=== PATIENT | male | born 1950 | race Caucasian/White ===

== ENCOUNTER → 2016-05-08 | Outpatient (CLI) | payer MEDICARE, OTHER ==
[~2016-05-08] MED LIST: CALCIUM/MAGNESI1 T17 PO; FISH OIL CONCEN1 SG2 PO; MULTI VITAMINS1 TAB PO; PRINZIDE 12.5 M1 TA1 PO; TURMERIC500 MG PO; VITAMIN C500 MG PO
== END ==
LOC: COL.RAD 09:25
DX: Z13.6 Encounter for screening for cardiovascular disorders (principal); F17.210 Nicotine dependence, cigarettes, uncomplicated

== ENCOUNTER → 2019-12-12 | Outpatient (CLI) | payer MEDICARE, OTHER | LOC: COL.RAD | DX: K31.9 Disease of stomach and duodenum, unspecified (principal); R91.8 Other nonspecific abnormal finding of lung field | CPT/HCPCS: Q9967 ==

== ENCOUNTER 2020-03-27 12:47 | Inpatient (IN) | payer MEDICARE, OTHER ==
[~2020-03-27] VITALS: Ht 182.9 cm; Wt 92.5 kg
[2020-04-02] VITALS (11 sets, daily range): BP systolic 122–150; BP diastolic 72–95; PULSE 49–75; TEMP 97.9–98.8
[2020-04-02] MEDS ORDERED: LIPITOR 10MG10 MG (08:12)
[2020-04-02] MEDS ORDERED: PRINZIDE 12.5 M1 TA1 PO (08:13)
[2020-04-02] MEDS ORDERED: NORVASC 5MG5 MG/TAB PO (08:14)
[2020-04-02] MEDS ORDERED: TURMERIC500 MG PO (08:15)
[2020-04-02] MEDS ORDERED: OMEGA-3 1000 MG1 CAP PO (08:16)
[2020-04-02] MEDS ORDERED: DUO-KAPS1 CAP PO (08:16)
[2020-04-02] MEDS ORDERED: VITAMIN D31000 I1 PO (08:17)
[2020-04-02] MEDS ORDERED: PHARMASSURE ZIN50 MG PO (08:17)
[2020-04-02] MEDS ORDERED: [UNRECOGNIZED DRUG - OTHER] PO (08:18)
--- NOTE | 2020-04-02 19:19 | NUR ---
PT RESTING IN BED, DENIES ANY NEEDS AT PRESENT. FINISHING HIS EVENING MEAL.
--- NOTE | 2020-04-02 19:20 | NUR ---
Patient has done well today post operatively. Pain manged well with [place]. Abdominal lap site dressing CDI. He has voided without troubles. He is tolerating clears without nausea. Int. Vss on room air. Bedside report to night nurse
--- NOTE | 2020-04-02 23:31 | NUR ---
PT STATES HE HAS BEEN UP TO THE BR. SCD'S ON BILAT LE. ALSO STATES HE TOOK HIS LIPITOR THAT HE BROUGHT FROM HOME BECAUSE HE WAS TOLD HE COULD. REQUEST AND GIVEN PAIN MED FOR ABDOMINAL DISCOMFORT. RATES PAIN 5/10. LIGHTS OUT AND CALL LIGHT WITHIN REACH. DENIES ANY OTHER NEEDS.
[2020-04-03 00:25] VITALS: BP 116/62; PULSE 63; TEMP 98.5
[2020-04-03 04:32] VITALS: BP 116/69; PULSE 64; TEMP 97.7
[2020-04-03 07:13] VITALS: BP 124/70; PULSE 65; TEMP 99
--- NOTE | 2020-04-03 07:30 | NUR ---
PT HAD AN UNEVENTFUL NIGHT. [place] GIVEN FOR ABDOMINAL PAIN BUT NEEDED 2ND PILL 45 MIN AFTER FIRST DOSE. SLEPT FAIR THROUGH THE NIGHT. CALL LIGHT IN REACH. ASKING FOR MORE TO EAT.
--- NOTE | 2020-04-03 08:00 | NUR ---
Patient resting in bed. rounded. Patient general diet breakfast ordered. He denies nausea. [place] for pain per request, he report pain elevated when sitting up at 90 degrees. He denies troubles voided. abdomen distended, but soft. bowels audible. Incisions sites CDI. Scds. Int. Will monitor.
[2020-04-03 11:05] VITALS: BP 122/58; PULSE 71; TEMP 98.1
--- NOTE | 2020-04-03 13:00 | NUR ---
First visit from the chute worker. No needs right now.
[2020-04-03 16:00] VITALS: BP 142/77; PULSE 69; TEMP 97.8
[2020-04-03] MEDS ORDERED: NORCO 325 MG-51 TAB PO (16:39)
--- NOTE | 2020-04-03 17:00 | NUR ---
Patient ready for discharge. rounded this evening. Discharge orders obtained. INT dc. We reviewed all discharge education. We reviewed diet & activity restrictions. Incision cares discussed. Follow up appt schdeuled. rounded okayed patient to drive himself home. Patient ambulated out with all belongings. Denies questions or concerns.
== END 2020-04-03 17:15 | disposition home or self-care (01) | DRG 328 ==
LOC: INPTSU 04-02 06:32 → SURG 04-02 08:30 → JCC 04-02 10:44
PROVIDERS: ADMIT Surgery
PROC: 0DB64ZZ Excision of Stomach, Percutaneous Endoscopic Approach (ICD-10-PCS; principal; 2020-04-02 08:30)
DX: C49.A2 Gastrointestinal stromal tumor of stomach (principal); J44.9 Chronic obstructive pulmonary disease, unspecified; I10 Essential (primary) hypertension; E78.00 Pure hypercholesterolemia, unspecified; F17.210 Nicotine dependence, cigarettes, uncomplicated
CPT/HCPCS: J0330; J1100; J1885; J2405; J2704; J3010; J7120

== ENCOUNTER 2020-09-10 09:37 | Day surgery (SDC) | payer MEDICARE, OTHER ==
[~2020-09-10] VITALS: Ht 182.9 cm; Wt 90.9 kg
[~2020-09-10 09:37] MED LIST changes: +DUO-KAPS1 CAP PO; +LIPITOR 10MG10 MG; +NORCO 325 MG-51 TAB PO; +NORVASC 5MG5 MG/TAB PO; +OMEGA-3 1000 MG1 CAP PO; +PHARMASSURE ZIN50 MG PO; +VITAMIN D31000 I1 PO; +[UNRECOGNIZED DRUG - OTHER] PO
[2020-09-10 10:36] VITALS: BP 131/89; PULSE 79
[2020-09-10] MEDS ORDERED: NATURAL MAGNES200 MG PO (10:43)
[2020-09-10 11:10] VITALS: BP 118/79; PULSE 70; TEMP 97.6
[2020-09-10 11:25] VITALS: BP 112/80; PULSE 65
[2020-09-10 11:40] VITALS: BP 114/82; PULSE 63
--- NOTE | 2020-09-10 13:56 | NUR ---
PT RETRUNED FROM ENDO PROCEDURE ROOM INTO BAY #5. PT ALERT AND SLEEPY. DENIES NAUSEA OR PAIN AT THIS TIME. REQUESTS MUFFIN AND CRANBERRY JUICE. LUNGS CLEAR AND DIMINISHED, HRR, BOWEL SOUNDS PRESENT. IVF RUNNING PATENT INTO RIGHT WRIST. PT SEATED IN RECLINING CHAIR, WARM BLANKET PROVIDED, CALL LIGHT IN REACH.
--- NOTE | 2020-09-10 14:00 | NUR ---
PT TOLERATING FOOD AND FLUIDS WITHOUT DIFFICULTY. PT STATED FEELING READY TO GO HOME. WILL CONT TO MONITOR.
--- NOTE | 2020-09-10 14:01 | NUR ---
PT CONTINUES TO TOLERATE FOOD AND FLUIDS WITHOUT DIFFICULTY. DISCHARGE INSTRUCTIONS WERE EXPLAINED AND SIGNED BY THE PATIENT WITHOUT QUESTIONS. IV DC'D TO RIGHT WRIST WITHOUT DIFFICULTY. PT WAS TAKEN OUT OF FACILITY PER WC THROUGH THE PATIENT ENTRANCE TO [facility] VEHICLE AND THEY WERE DRIVING HIM HOME.
== END 2020-09-10 12:00 | disposition home or self-care (01) ==
LOC: SDCO 09:37
DX: Z12.11 Encounter for screening for malignant neoplasm of colon (principal); I10 Essential (primary) hypertension; E78.5 Hyperlipidemia, unspecified; J44.9 Chronic obstructive pulmonary disease, unspecified; E78.00 Pure hypercholesterolemia, unspecified; F17.210 Nicotine dependence, cigarettes, uncomplicated; Z86.010 Personal history of colon polyps; Z79.899 Other long term (current) drug therapy; Z80.0 Family history of malignant neoplasm of digestive organs; Z83.3 Family history of diabetes mellitus; Z80.1 Family history of malignant neoplasm of trachea, bronchus and lung
CPT/HCPCS: J2704; J7030